=== PATIENT | male | born 1970 | race Caucasian/White ===

== ENCOUNTER 2019-01-29 05:48 | Day surgery (SDC) | payer BC ==
--- NOTE | 2019-01-08 07:16 | HP ---
CC: Dr. Han Salgado * ADMISSION HISTORY AND PHYSICAL: DATE OF ADMISSION: 01/29/19 ATTENDING SURGEON: Dr. Sammy Rodriguez * (EKATERINA Abraham, dictating) CHIEF COMPLAINT: Symptomatic gallstones. HISTORY OF PRESENT ILLNESS: This is a hypertensive 48-year-old male with a history of GERD, who beginning around last summer was experiencing symptoms of right upper quadrant pain. This tended to occur postprandially and at times related to higher fat meals. He underwent ultrasound on 03/27/19, which showed a single small stone in the neck of the gallbladder without gallbladder wall thickening, pericholecystic fluid, or common bile duct dilatation. He was noted to have hepatomegaly and fatty liver changes. He was seen in the office by Dr. Santamaria initially on 04/12/18. He was recommended for surgery, but deferred that preferring instead to make dietary changes. He did improve for a period of time, but more lately he has experienced increased symptoms again. He was seen in the office by Dr. Rodriguez on 11/23/18. Because the symptoms had changed slightly, i.e., pain in the right upper quadrant radiating both to the back and also to the right lower quadrant, he was recommended to undergo EGD, which was done with Dr. Fernando with findings of normal anatomy, biopsies were also negative. The patient also states that the recent pain has been very much different from that which he experienced when he had more active peptic ulcer disease with bleeding in 2002. Dr. Rodriguez has discussed with him the indications for surgery, the risks, benefits, and alternatives. The patient is aware of the expected perioperative course and would like to proceed as scheduled with laparoscopic cholecystectomy. PAST MEDICAL HISTORY: 1. Peptic ulcer disease with upper GI bleeding in 2002 (did not require transfusion and did respond to medical therapy, which he has maintained). 2. Hypertension. 3. Hyperlipidemia. 4. MOMIN. 5. Occasional palpitations (primarily PVCs per the patient's history, followed with regular EKGs by Dr. Salgado). PAST SURGICAL HISTORY: 1. Open appendectomy in 1992, which he states was a complicated postoperative course and had been a reason he had deferred surgery back in the fall. 2. Surgery for amblyopia as a child. 3. Peritonsillar abscess drainage as a teen. 4. ORIF of a right femur fracture with subsequent removal of hardware. No other reported surgical or anesthesia complications. CURRENT MEDICATIONS: 1. Atorvastatin 40 mg once daily. 2. Lisinopril 10 mg once daily. 3. Hydrochlorothiazide 25 mg once daily. 4. Omeprazole 20 mg once daily. 5. Famotidine 20 mg once daily p.r.n. (uses on occasion, but not daily). 6. Nystatin swish and swallow p.r.n. (has not required recently). DRUG ALLERGIES: None known. FAMILY HISTORY: The patient is adopted and specific family history is unknown. SOCIAL HISTORY: The patient is . 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 He denies use of tobacco. He drinks on average 6 to 7 drinks per week. He denies use of any other recreational drugs. REVIEW OF SYSTEMS: General: No acute illnesses or constitutional symptoms other than as noted per the HPI. HEENT: No problems reported. Cardiovascular : As above. Recent EKGs per Dr. Salgado's office. No recent changes. History for hypertension. Respiratory: No history of asthma, chronic cough, or shortness of breath. GI: As above per HPI. No significant lower GI symptoms. He has not undergone screening colonoscopy. : No problems reported. Endocrine: No diabetes or thyroid dysfunction. Integument: He has had some chronic problems with tinea pedis. PHYSICAL EXAMINATION GENERAL: Well-nourished, obese male, in no acute distress. VITAL SIGNS: Height 5 feet 10 inches, weight 232 pounds by history, temperature 98.6, blood pressure 150/86, pulse 76, respirations 16. HEENT: Amblyopia. Pupils are otherwise equal and round, reactive and EOMs intact. No conjunctival pallor or scleral icterus. Oropharynx: Teeth in good repair. No intraoral lesions. NECK: No lymphadenopathy, thyromegaly, or masses. LUNGS: Clear to auscultation. No rales or wheezes. HEART: Regular rate and rhythm. No murmur noted. ABDOMEN: Soft, nontender to palpation. No masses were appreciable or hepatosplenomegaly. Well-healed right lower quadrant incision. GENITALIA: Testes normal. No palpable inguinal hernias. RECTAL: Not done. BACK: No spinous process or CVA tenderness. EXTREMITIES: No edema. NEUROLOGICAL: Grossly intact. SKIN: Warm and dry. No suspicious rashes or lesions noted. Full skin exam not performed. IMPRESSION: Symptomatic cholelithiasis. PLAN: Laparoscopic cholecystectomy. EKATERINA ABRAHAM [id number]/[facility] #: [id number] [facility]
[~2019-01-29 05:48] MED LIST: Buffered Lidocaine 1% SYRIN* 1 ML/SYRINGE INTRADERM ONE
[2019-01-29] MEDS ORDERED: Famotidine TAB* 20 MG PO ONE (06:00)
[2019-01-29] MEDS ORDERED: Lactated Ringers 1000 ML Bag* 1,000 ML IV SCH (06:00)
[2019-01-29] MEDS ORDERED: Dexamethasone IV* 4 MG/ML 1 ML (4 MG) IV SLOW PU ONE (06:00)
[2019-01-29] MEDS ORDERED: Bupivacaine 0.25% W/EPI* 10 ML SDV ONE (06:49)
[2019-01-29] MEDS ORDERED: Dexamethasone IV* 4 MG/ML 1 ML (4 MG) ONE (06:55)
[2019-01-29] MEDS ORDERED: ceFAZolin 2 GM PREMIX in ORs 2 GM/50 ML BAG ONE (06:55)
[2019-01-29] MEDS ORDERED: Famotidine TAB* 20 MG ONE (06:55)
[2019-01-29] MEDS ORDERED: Buffered Lidocaine 1% SYRIN* 1 ML/SYRINGE INTRADERM ONE (06:56)
[2019-01-29] MEDS ORDERED: Midazolam* 1 MG/ML 5 ML VIAL (5 MG) ONE (07:26)
[2019-01-29] MEDS ORDERED: Lidocaine 2% PF * 5 ML VIAL ONE (07:27)
[2019-01-29] MEDS ORDERED: Propofol* 10 MG/ML 20 ML BTL ONE (07:27)
[2019-01-29] MEDS ORDERED: fentaNYL* 50 MCG/ML 5 ML VIAL (250 MCG VIAL) ONE (07:27)
[2019-01-29] MEDS ORDERED: Rocuronium* 10 MG/ML VIAL ONE (07:27)
[2019-01-29] MEDS ORDERED: Ketorolac INJ* 30 MG/ML 1 ML VIAL IV PRN (08:04)
[2019-01-29] MEDS ORDERED: Acetaminophen TAB* 325 MG PO PRN (08:04)
[2019-01-29] MEDS ORDERED: HYDROcodone/ACETAMIN 5-325 MG* 1 TAB PO PRN (08:04)
[2019-01-29] MEDS ORDERED: PROCHLORPERAZINE INJ 5 MG/ML 2 ML VIAL IV PRN (08:04)
[2019-01-29] MEDS ORDERED: fentaNYL* 50 MCG/ML 2 ML VIAL (100 MCG VIAL) IV PRN (08:04)
[2019-01-29] MEDS ORDERED: HYDROmorphone INJ1* 1 MG/ML SYRINGE IV PRN (08:04)
[2019-01-29] MEDS ORDERED: Naloxone* 0.4 MG/ML 1 ML VIAL IV PRN (08:04)
[2019-01-29] MEDS ORDERED: DiMENhydriNATE IV* 50 MG/ML VIAL IV PUSH PRN (08:04)
[2019-01-29] MEDS ORDERED: Glycopyrrolate IV* 0.2 MG/ML 1 ML VIAL ONE (08:05)
[2019-01-29] MEDS ORDERED: Neostigmine Methylsulfate* 1 MG/ML 10 ML VIAL (1 mg/ml) ONE (08:05)
[2019-01-29] MEDS ORDERED: Ondansetron INJ* 2 MG/ML VIAL ONE (08:05)
--- NOTE | 2019-01-29 09:05 | OP ---
Operative Report - Blank - Operative Report Date of Operation: 01/29/19 Note: Brief Operative Note Preop Dx: symptomatic cholelithiaisis Postop Dx: same Procedure: Laparoscopic cholecystectomy Anesthesia: GET Surgeon: Michael Bottle Packer: EKATERINA Jordan Fluids: 1000 ml RL EBL: 50 ml Specimen: gallbladder Drains: none Findings: dictated
[2019-01-29] MEDS ORDERED: Ketorolac INJ* 30 MG/ML 1 ML VIAL ONE (09:25)
[2019-01-29] MEDS ORDERED: PROCHLORPERAZINE INJ 5 MG/ML 2 ML VIAL ONE (09:41)
[2019-01-29] MEDS ORDERED: HYDROcodone/ACETAMIN 5-325 MG* 1 TAB ONE (10:14)
[2019-01-29 10:15] VITALS: BP 130/76
--- NOTE | 2019-01-29 11:58 | OP ---
CC: Han Salgado MD * DATE OF OPERATION: 01/29/19 - SDS DATE OF : 72 SURGEON: Dr. Sammy Rodriguez. WIPING CLOTH CUTTER: EKATERINA Abraham. ANESTHESIOLOGIST: Demian Corona MD. ANESTHESIA: General endotracheal. PRE-OP DIAGNOSIS: Symptomatic cholelithiasis. POST-OP DIAGNOSIS: Symptomatic cholelithiasis. OPERATIVE PROCEDURE: Laparoscopic cholecystectomy. ESTIMATED BLOOD LOSS: 50 mL. IV FLUIDS: 1 L crystalloids. SPECIMEN: Gallbladder. DRAINS: None. COMPLICATIONS: None. COUNTS: The instruments, needle and sponge counts were correct. DESCRIPTION OF PROCEDURE: The patient was brought to the operative room and placed on the table supine. Sequential compression devices were placed on both lower extremities. General anesthesia was administered. The abdomen was prepped and draped in the usual sterile fashion and a time-out was performed. Local anesthetic was infiltrated into the skin and soft tissue prior to making each incision. Entry into the abdomen was through a transumbilical vertical incision using the open technique. After accessing the peritoneal cavity, a 5 mm trocar was placed. Carbon dioxide was insufflated to a pressure of 15 mmHg. Under direct visualization, 5 mm trocars were placed in the subxiphoid position and 2 additional in the right upper quadrant. The initial umbilical trocar was exchanged for a 12 mm trocar. The gallbladder was identified and appeared to be enrobed in fat. There were no acute changes noted. The gallbladder fundus was grasped and retracted cephalad. The gallbladder infundibulum appeared to be folded back upon itself with a long cystic duct. The peritoneum investing gallbladder was incised and dissected free on the medial and lateral aspects and sharp and blunt dissection performed, exposing the critical view. The cystic artery was dissected out, clipped and divided, and the duct was doubly clipped and divided. The gallbladder was then divided from attachments to the liver bed using the cautery and scissors dissection to stay in an avascular plane. However, portions of the liver capsule were violated along the medial aspect due to retraction and oozing from that site was controlled with cautery. The gallbladder was ultimately freed from its attachments to the liver and then placed through a retrieval bag and retrieved through the umbilical site. Additional cauterization of the liver bed was necessary to achieve hemostasis as well as placement of Surgicel in the liver bed. After copious lavage and assuring hemostasis was excellent, the ports were removed under direct visualization and carbon dioxide was released. The umbilicus was closed with 0 Vicryl in simple fashion to approximate the fascia. The skin incisions were closed with 4-0 Monocryl in a subcuticular fashion and Steri-Strips were applied. The patient tolerated the procedure well, was extubated uneventfully, and transferred to recovery in stable condition. [id number]/[facility] #: [id number] [facility]
== END 2019-01-29 10:54 | disposition home or self-care (01) ==
LOC: OR 05:48
PROVIDERS: ATTEND Surgery
DX: K80.10 Calculus of gallbladder with chronic cholecystitis without obstruction (principal); I10 Essential (primary) hypertension; E78.5 Hyperlipidemia, unspecified; I49.3 Ventricular premature depolarization; K21.9 Gastro-esophageal reflux disease without esophagitis; K76.0 Fatty (change of) liver, not elsewhere classified
CPT/HCPCS: 88304; A9270-GY; J0690; J0780; J1100; J1885; J2250; J2405; J2704; J2710; J3010

== ENCOUNTER 2019-07-29 15:04 | Emergency (ER) | payer BC, OTHER ==
[2019-07-29 15:54] VITALS: BP 149/94
--- NOTE | 2019-07-29 16:01 | ED ---
- HPI Summary HPI Summary: This patient is a 49-year-old male presenting to the ED with an exposure concern. Patient states he obtained blood on his hands from a patient he brought to the ED. Source patient known and has no known HIV or Hep. Patient does not have any cuts, open wounds, did not get the blood in his eyes or in mouth. States came because he was required to follow protocol. - History of Current Complaint Chief Complaint: EDExposureBodyFluid Stated Complaint: EXPOSURE TO BLOOD PER PT Time Seen by Provider: 07/29/19 15:21 Date of Incident: 07/29/19 Body Fluid Exposure: Blood Treatment SPRINKLER FITTER: Other - washed hands - Source Information HIV: Unknown, No Hepatitis: No PMH/Surg Hx/FS Hx/Imm Hx Previously Healthy: Yes Endocrine/Hematology History: Denies: Hx Diabetes, Hx Thyroid Disease Cardiovascular History: Reports: Hx Hypertension, Other Cardiovascular Problems/ Disorders - episode of PVC 2 years ago-none since Denies: Hx Pacemaker/ICD Respiratory History: Denies: Hx Asthma, Hx Chronic Obstructive Pulmonary Disease (COPD) GI History: Reports: Hx Gastroesophageal Reflux Disease, Other GI Disorders - hx of 10 years, resolved, fatty liver non alcoholic enlarged liver Denies: Hx Ulcer History: Denies: Hx Renal Disease Sensory History: Denies: Hx Contacts or Glasses - left lazy eye- sees but doesn't focus, Hx Hearing Aid Opthamlomology History: Denies: Hx Contacts or Glasses - left lazy eye- sees but doesn't focus Psychiatric History: Denies: Hx Panic Disorder - Cancer History Hx Chemotherapy: No - Surgical History Surgery Procedure, Year, and Place: appy 1992,muscle eye correction FOR LAZY EYE left eye,right knee pin for stable fx (removed) tonsils, ear tubes at 17 Hx Anesthesia Reactions: No - Immunization History Hx Pertussis Vaccination: No Immunizations Up to Date: Yes Infectious Disease History: No Infectious Disease History: Denies: Hx Hepatitis, Hx Human Immunodeficiency Virus (HIV), Traveled Outside the [place] in Last 30 Days - Social History Occupation: Employed Full-time Lives: With Family Alcohol Use: Occasionally Hx Substance Use: No Substance Use Type: Reports: None Hx Tobacco Use: No Smoking Status (MU): Never Smoked Tobacco Review of Systems Negative: Fever, Chills, Fatigue, Skin Diaphoresis Negative: Chest Pain Negative: Shortness Of Breath, Cough Genitourinary: Negative Positive: no symptoms reported, see HPI Negative: Arthralgia, Myalgia Neurological: Negative All Other Systems Reviewed And Are Negative: Yes Physical Exam Triage Information Reviewed: Yes Vital Signs On Initial Exam: Initial Vitals Temp Pulse Resp BP Pulse Ox 98.6 F 103 19 151/94 96 07/29/19 15:07 07/29/19 15:07 07/29/19 15:07 07/29/19 15:07 07/29/19 15:07 Vital Signs Reviewed: Yes Appearance: Positive: Well-Appearing, Well-Nourished Skin: Positive: Warm, Skin Color Reflects Adequate Perfusion Head/Face: Positive: Normal Head/Face Inspection Eyes: Positive: EOMI, Conjunctiva Clear Neck: Positive: Supple, No Lymphadenopathy Respiratory/Lung Sounds: Positive: Clear to Auscultation, Breath Sounds Present Cardiovascular: Positive: RRR, Pulses are Symmetrical in both Upper and Lower Extremities Musculoskeletal: Positive: Strength/ROM Intact Neurological: Positive: Speech Normal Psychiatric: Positive: Affect/Mood Appropriate AVPU Assessment: Alert Procedures - Sedation Patient Received Moderate/Deep Sedation with Procedure: No Diagnostics - Vital Signs Vital Signs Temp Pulse Resp BP Pulse Ox 07/29/19 15:52 98.4 F 96 16 149/94 98 07/29/19 15:07 98.6 F 103 19 151/94 96 - Laboratory Lab Statement: Any lab studies that have been ordered have been reviewed, and results considered in the medical decision making process. Needlestick Course/Dx - Course Course Of Treatment: Patient had no visible wounds, cuts and did not get any blood into his mouth or to his eyes. He states there was only some droplets of blood on his bilateral hands and he was following protocol by coming to the ED for exposure. At this time as patient has no cuts, will not obtain labs or start prophylatic treatment at this time. - Diagnoses Provider Diagnoses: Exposure to blood or body fluid Discharge ED - Sign-Out/Discharge Documenting (check all that apply): Patient Departure - Discharge Plan Condition: Stable Disposition: HOME Referrals: Han Salgado MD [Primary Care Provider] - Additional Instructions: No evidence of blood exposure No need for follow up or blood work at this time - Billing Disposition and Condition Condition: STABLE Disposition: Home
== END 2019-07-29 15:50 | disposition home or self-care (01) ==
LOC: ED 15:04
DX: Z77.21 Contact with and (suspected) exposure to potentially hazardous body fluids (principal); X58.XXXA Exposure to other specified factors, initial encounter; Y92.239 Unspecified place in hospital as the place of occurrence of the external cause; Y99.0 Civilian activity done for income or pay; I10 Essential (primary) hypertension; K21.9 Gastro-esophageal reflux disease without esophagitis
CPT/HCPCS: 99282

== ENCOUNTER 2019-12-08 12:20 | Emergency (ER) | payer BC, OTHER ==
--- OUTSIDE RECORDS SUMMARY | 2019-12-08 12:37 | XMS REPORT | Continuity of Care Document ---
:1970 External Reference #:[id number] Author Name Han Salgado M.D. Address [address] [place] [id number] Care Team Providers Name Role Phone [facility] Care Team Information Playroom Attendant -[facility] - All[facility] - Sleep Disorder Care Team Information Playroom Attendant [phone] [facility] - Surgery Care Team Information Playroom Attendant Problems Active Problems Provider Date Disorder of lipid metabolism Han Salgado M.D. Onset: 06/29/2004 Chronic nonalcoholic liver disease Han Salgado M.D. Onset: 06/29/2004 H/O: peptic ulcer Han Salgado M.D. Onset: 06/30/2006 Benign essential hypertension Han Salgado M.D. Onset: 05/02/2007 Essential hypertension Han Salgado M.D. Onset: 07/18/2015 Gastroesophageal reflux disease Han Salgado M.D. Onset: 07/18/2015 Disorder of fatty acid metabolism Han Salgado M.D. Onset: 07/18/2015 Nonalcoholic steatohepatitis (Quiroz) Han Salgado M.D. Onset: 07/18/2015 Social History Type Date Description Comments Sex Unknown Tobacco Use Reviewed: 10/15/19 Denies Cigarette Use Smoking Status Reviewed: 10/15/19 Denies Cigarette Use ETOH Use Occasionally consumes alcohol Exercise Type/Frequency Does not exercise Sun Exposure moderate amount of sun exposure Sun Exposure Uses sunscreen Seat Belt/Car Seat always uses seat belt Allergies, Adverse Reactions, Alerts Active Allergies Reaction Severity Comments Date No Known Drug Allergy 03/16/2010 Medications Active Medications SIG Qnty Indications Ordering Provider Date Famotidine 1 tab by mouth Unknown 08/02/2019 10mg Tablets as needed for gerd Nystatin apply to affected 90gm B37.2 Han Salgado, 06/13/2017 [id number]/GM area(s) on M.D. Cream buttocks and adjacent skin three times a day until clear; resume as needed Omeprazole take 1 capsule by 90caps K21.9 Han Salgado, 01/02/2014 20mg mouth every M.D. Capsules DR raina Z87.11 Atorvastatin Calcium take 1 tablet by 90tabs E71.30 Han Salgado, 01/24 40mg Tablets mouth at bedtime M.D. Hydrochlorothiazide take 1 tablet by 90tabs I10 Han Salgado, 2009 25mg Tablets mouth every M.D. morning Lisinopril take 1 tablet by 90tabs I10 Han Salgado, 10/31/2008 10mg Tablets mouth once daily M.D. For High Blood Pressure Immunizations CPT Code Status Date Vaccine Lot # [id number] Given 07/02/2019 Influenza Virus Vaccine, Quadrivalent, Split, Preservative Free [id number] Given 09/21/2018 Td Immunization [id number] Given 08/07/2017 Influenza Virus Vaccine, Quadrivalent, Split, [id number] Preservative Free 56388 Given 07/25/2016 Influenza Virus Vaccine, Quadrivalent, Split, [id number] Preservative Free 71067 Given 07/07/2014 Influenza Virus Vaccine, Quadrivalent, Split, [id number] Preservative Free 79214 Given 03/28/2008 Adacel or Boostrix, TDaP [id number] 53166 Given 07/18/2003 Flu, Split Virus [id number] Vital Signs Date Vital Result Comment 10/15/2019 9:42am BP Systolic 132 mmHg BP Diastolic 84 mmHg Height 70.5 inches 5'10.50" Weight 231.00 lb BMI (Body Mass Index) 32.7 kg/m2 08/03/2019 10:23am BP Systolic 120 mmHg BP Diastolic 72 mmHg Heart Rate 76 /min O2 % BldC Oximetry 95 % Body Temperature 97.8 F Height 70.50 inches 5'10.50" Weight 229.00 lb BMI (Body Mass Index) 32.4 kg/m2 Results Description No Information Available Procedures Description No Information Available Medical Devices Description No Information Available Encounters Type Date Location Provider Dx Diagnosis Office Visit 10/15/2019 Main Office Han Salgado I10 Essential ( primary) 9:45a M.DImelda hypertension K21.9 Gastro-esophageal reflux disease without esophagitis E71.30 Disorder of fatty-acid metabolism, unspecified Z68.32 Body mass index (BMI) 32.0-32.9, adult Office Visit 08/03/2019 10:15a Main Office Han Salgado M.D. R05 Cough K21.9 Gastro-esophageal reflux disease without esophagitis E66.3 Overweight Z68.32 Body mass index (BMI) 32.0-32.9, adult Assessments Date Code Description Provider 10/15/2019 I10 Essential (primary) hypertension Han Salgado M.D. 10/15/2019 K21.9 Gastro-esophageal reflux disease without Han Salgado M.D. esophagitis 10/15/2019 E71.30 Disorder of fatty-acid metabolism, Han Salgado M.D. unspecified 10/15/2019 Z68.32 Body mass index (BMI) 32.0-32.9, adult Han Salgado M.D. 08/03/2019 R05 Cough Han Salgado M.D. 08/03/2019 K21.9 Gastro-esophageal reflux disease without Han Salgado M.D. esophagitis 08/03/2019 E66.3 Overweight Han Salgado M.D. 08/03/2019 Z68.32 Body mass index (BMI) 32.0-32.9, adult Han Salgado M.D. Plan of Treatment Future Appointment(s):04/14/2020 9:45 am - Han Salgado M.D. at Main [place]/15/2019 - Han Salgado M.D.I10 Essential (primary) hypertensionNew Orders:Ua w/ micro, inhouse, Ordered: 10/15/19Comments:ControlledFollow up:RTO 6 months.K21.9 Gastro-esophageal reflux disease without ftxescleieaL02.30 Disorder of fatty-acid metabolism, unspecifiedFollow up:Get fasting bloodwork ( 12 hr fast, can have water) in the near future.Z68.32 Body mass index (BMI) 32.0 -32.9, adult Functional Status Description No Information Available Mental Status Description No Information Available Referrals Description No Information Available
--- NOTE | 2019-12-08 12:39 | UC ---
Laceration HPI - HPI Summary HPI Summary: Patient is a 49yo male presenting with laceration on left hand that occurred ~ 45 minutes before coming in. States he accidentally cut it with a hole saw which he was using to cut plastic with. States it started to bleed immediately. States he washed it out and wrapped it up with gauze. Denies pain. Denies decreased ROM. States he needs a tetanus booster today. - History Of Current Complaint Stated Complaint: HAND INJURY Hx Obtained From: Patient Pain Intensity: 0 Related History: Dominant Hand Right - Allergies/Home Medications Allergies/Adverse Reactions: Allergies Allergy/AdvReac Type Severity Reaction Status Date / Time No Known Allergies Allergy Verified 12/08/19 12:30 Home Medications: Home Medications Atorvastatin* [Lipitor*] 40 mg PO BEDTIME 11/28/18 [History Confirmed 12/08/19] Famotidine TAB* [Pepcid 20 MG TAB*] 20 mg PO DAILY PRN 11/28/18 [History Confirmed 12/08/19] Hydrochlorothiazide TAB* [Hydrodiuril TAB*] 25 mg PO QAM 11/28/18 [History Confirmed 12/08/19] Omeprazole 20 mg PO QAM 11/28/18 [History Confirmed 12/08/19] Lisinopril TAB* [Prinivil TAB*] 10 mg PO QAM 01/15/19 [History Confirmed ] PMH/Surg Hx/FS Hx/Imm Hx Cardiovascular History: Hypertension - Surgical History Surgical History: Yes Surgery Procedure, Year, and Place: appy 1992,muscle eye correction FOR LAZY EYE left eye,right knee pin for stable fx (removed) tonsils, ear tubes at 17 - Family History Known Family History: Positive: Hypertension, Non-Contributory - Social History Alcohol Use: Weekly Substance Use Type: None Smoking Status (MU): Never Smoked Tobacco - Immunization History Most Recent Tetanus Shot: 7 years ago Review of Systems All Other Systems Reviewed And Are Negative: No Constitutional: Positive: Negative Skin: Positive: Other - laceration left hand Respiratory: Positive: Negative Cardiovascular: Positive: Negative Gastrointestinal: Positive: Negative Musculoskeletal: Negative: Arthralgia, Decreased ROM, Edema Neurological/Mental Status: Positive: Negative. Negative: Paresthesia, Numbness Physical Exam - Summary Physical Exam Summary: Vital Signs Reviewed: Yes A+Ox3, no distress Eyes: Conjunctiva Clear ENT: Hearing grossly normal neck: supple Respiratory: Positive: No respiratory distress, No accessory muscle use Cardiovascular: skin color reflect adequate perfusion Musculoskeletal Exam: DOCKERY x 4 without difficulty, left thumb ROM intact and full Neurological: Positive: Alert, ambulatory without difficulty Psychological: Positive: age appropriate behavior Skin: Positive: 3cm laceration with skin flap noted on dorsal aspect of left hand at base of thumb, superficial, no tendon involvement, 3 fragments of melted plastic noted in laceration Laceration Repair - Laceration Repair 1 Description: Linear Laceration Size After Repair: Length (cm) - 3cm Contamination/FB Removal: 3 small fragments of melted plastic removed with forceps Modified For Repair: No Type Injection: Local Anesthesia Used: 1.0% Lido Cleansing Completed Via Routine Prep: Yes Irrigation With Pressure Irrigation Device: Yes Closure Material: Sutures - four sutures Closure Method: Single Layer Suture Of: Skin Suture Type: Prolene - 4-0 Laceration Course/Dx - Course/Dx Course Of Treatment: Patient's laceration was cleansed and pressure irrigated with NS. 3 small pieces of plastic easily removed with forceps before closure. A time out was performed with JESUS ALBERTO Casillas. I anesthetized with 1% lidocaine and placed 4 sutures. The wound was then dressed. I educated patient on wound and suture care. I also educated on s/s of infection and instructed to return or go to ED if any red flags occur. Instructed to return to have stitches removed in 10 days. Patient voiced understanding and agreed with treatment plan. Patient also received tetanus booster today. - Diagnosis Provider Diagnosis: Laceration of left hand without complication, excluding fingers Discharge ED - Sign-Out/Discharge Documenting (check all that apply): Patient Departure All imaging exams completed and their final reports reviewed: No Studies - Discharge Plan Condition: Stable Disposition: HOME Patient Education Materials: Diphtheria/Acellular Pertussis/Tetanus Booster Vaccine (By injection), Care For Your Stitches (ED), Laceration (ED) Referrals: Han Salgado MD [Primary Care Provider] - Additional Instructions: You received 4 sutures today. Keep your stitches clean and dry for the first 24-48 hours. After that, you may wash gently with soap and warm water daily. Your stitches will not absorb. Return in 7-10 days to have the stitches removed. You may take over the counter pain medications as directed for pain relief. Return or go to the emergency department if you notice any redness, swelling, fluid drainage, fever, or nausea and vomiting. - Billing Disposition and Condition Condition: STABLE Disposition: Home
[2019-12-08] MEDS ORDERED: Lidocaine 1% MPF ** 5 ML VIAL INJ ONE (12:46)
[2019-12-08 12:48] VITALS: BP 158/116
[2019-12-08] MEDS ORDERED: Tetan/Diph/Pertus SYR(Tdap)* 0.5 ML SYR(BOOSTRIX) use SYR contains LATEX IM ONE (12:48)
== END 2019-12-08 13:50 | disposition home or self-care (01) ==
LOC: UCEAST 12:20
DX: S61.422A Laceration with foreign body of left hand, initial encounter (principal); W27.8XXA Contact with other nonpowered hand tool, initial encounter; Y93.89 Activity, other specified; Y92.9 Unspecified place or not applicable; Z23 Encounter for immunization; I10 Essential (primary) hypertension; Z79.899 Other long term (current) drug therapy
CPT/HCPCS: 12002; 90471; 90715; 99211; G0463